=== PATIENT | female | born 1940 ===

== ENCOUNTER → 2017-10-28 | Outpatient (CLI) | payer MEDICARE, OTHER ==
[~2017-10-28] VITALS: Ht 172.7 cm; Wt 71.0 kg
[~2017-10-28] MED LIST: APIX5TAB PO; FERR-89 PO; FURO40 PO; LISI-661 PO; METO25XL PO; MULT1TAB70 PO
[2017-10-28 13:21] VITALS: BP 119/54
== END | disposition home or self-care (01) ==
LOC: SRCNTR 13:14
PROVIDERS: ATTEND Internal Medicine
DX: I50.9 Heart failure, unspecified (principal); I48.91 Unspecified atrial fibrillation; R91.1 Solitary pulmonary nodule; Z79.01 Long term (current) use of anticoagulants
CPT/HCPCS: G0463

== ENCOUNTER → 2018-05-24 | Outpatient (CLI) | payer MEDICARE, OTHER ==
[~2018-05-24] VITALS: Ht 172.7 cm; Wt 70.0 kg
[2018-05-24 12:01] VITALS: BP 132/54
== END | disposition home or self-care (01) ==
LOC: SRCNTR 11:31
PROVIDERS: ATTEND Internal Medicine
DX: J90 Pleural effusion, not elsewhere classified (principal); J84.10 Pulmonary fibrosis, unspecified; R91.1 Solitary pulmonary nodule; I50.9 Heart failure, unspecified; I48.91 Unspecified atrial fibrillation
CPT/HCPCS: G0463